=== PATIENT | female | born 1985 | race Caucasian/White ===

== ENCOUNTER 2017-12-03 17:31 | Emergency (ER) | payer OTHER ==
--- NOTE | 2017-12-03 17:42 | EDPHY ---
H & P HPI/ROS: CHIEF COMPLAINT: Seizure, collapse HISTORY OF PRESENT ILLNESS: Patient is a 32-year-old female with a history of seizure disorder. Per her friend she has approximately 4 seizures a day. He was standing in front of the store talking to her when she fell straight back. He states it was like someone struck her. She does not have obvious seizure activity. When EMS found the patient she was minimally responsive. The patient 's friend states he has only known her for day and has no further history. He denies the patient using drugs or alcohol that he witnessed prior to the event. EMS found his blood glucose to be 1 0 4. REVIEW OF SYSTEMS: Limited due the patient's altered mental status Past Medical/Surgical History: Seizure disorder, CVA Past surgical history: Unknown Social history: Homeless Physical Exam: Vital signs noted GENERAL: Well-appearing, in no acute distress, alert. HEAD: No evidence of trauma. EYES: PERRLA, EOMI, normal to inspection. ENT: Airway intact, no dental or oral injury, no malocclusion, no hemotympanum , normal external examination. NECK: The trachea is midline. There is no crepitus. The C-spine is nontender. . RESPIRATORY: Clear to auscultation bilaterally, no rales, rhonchi or wheezing. There is no crepitus or palpable rib fractures. CVS: Regular rate and rhythm, no rubs, murmurs, or gallops. ABDOMEN: Soft, nontender, nondistended, normal bowel sounds, no bruising or abrasions. Pelvis: Stable. No tenderness palpation. Hips full range of motion. BACK: Normal to inspection, no spinal tenderness, no spinal step off, no notable bruising or abrasions. SKIN: Normal color, warm, dry. No pallor or diaphoresis. EXTREMITIES: Right upper extremity: Atraumatic. No visible signs of trauma. No tenderness palpation. Neurovascular intact distally. Left upper extremity: Atraumatic. No visible signs of trauma. No tenderness palpation. Neurovascular intact distally. Right lower extremity: Atraumatic. No visible signs of trauma. No tenderness palpation. Neurovascular intact distally. Left lower extremity: Atraumatic. No visible signs of trauma. No tenderness palpation. Neurovascular intact distally. NEURO/PSYCH: Alert and oriented x1, GCS 14, flat affect, normal motor sensory exam. Constitutional: Initial Vital Signs Temperature (C) 36.6 C 12/03/17 17:31 Heart Rate 76 12/03/17 17:31 Respiratory Rate 16 12/03/17 17:31 Blood Pressure 125/87 H 12/03/17 17:31 O2 Sat (%) 96 12/03/17 17:31 O2 Delivery Mode Room Air Allergies/Adverse Reactions: Unable to Assess Allergy (Unverified 12/03/17 17:41) Home Medications: Medication Instructions Recorded Unobtainable 12/03/17 Medical Decision Making - Diagnostics Imaging Results: Imaging Impressions Cervical Spine CT 12/03/17 17:43 Impression: 1. Negative for intracranial posttraumatic abnormality. 2. See above report for additional findings. CT Cervical Spine Without Contrast History: Trauma. Technique: Multislice helical CT through the cervical spine without contrast from the skull base to T1. Soft tissue and bone evaluation is performed. Sagittal and coronal reconstructions are obtained and reviewed. Dose reduction techniques were utilized. Findings: Cervical alignment is anatomic. No fracture or dislocation is identified. The relationship between skull base and C1 is normal. The C1-C2 articulation is normal. The odontoid process is normal. Disk spaces maintain their normal height. The cervical thoracic junction is normal. Soft tissue window evaluation does not show evidence of epidural or prevertebral hematoma. Surgical clips are noted in the region of the thyroid. Impression: 1. Negative for fracture. 2. See above report for additional findings. Results called and discussed with JORDAN WALKER M.D. on 12/03/2017 at 19:29 Chest X-Ray 12/03/17 17:43 Impression: 1. Increased interstitial markings. Differential includes early pulmonary edema , bronchitis. 2. Doubt focal cavitary lesion in the right lower lobe. It is likely artifactual considering how well rounded this focus is. Head CT 12/03/17 17:43 Impression: 1. Negative for intracranial posttraumatic abnormality. 2. See above report for additional findings. CT Cervical Spine Without Contrast History: Trauma. Technique: Multislice helical CT through the cervical spine without contrast from the skull base to T1. Soft tissue and bone evaluation is performed. Sagittal and coronal reconstructions are obtained and reviewed. Dose reduction techniques were utilized. Findings: Cervical alignment is anatomic. No fracture or dislocation is identified. The relationship between skull base and C1 is normal. The C1-C2 articulation is normal. The odontoid process is normal. Disk spaces maintain their normal height. The cervical thoracic junction is normal. Soft tissue window evaluation does not show evidence of epidural or prevertebral hematoma. Surgical clips are noted in the region of the thyroid. Impression: 1. Negative for fracture. 2. See above report for additional findings. Results called and discussed with JORDAN WALKER M.D. on 12/03/2017 at 19:29 ED Course/Re-evaluation: In the emergency department I met EMS on arrival. I took report from the yeast culture developer. Laboratories were obtained. Head CT, C-spine CT, chest x-ray and EKG were obtained. CBC showed elevated white count of 10. It was otherwise unremarkable. Chemistry panel normal. negative. The patient was rechecked during her stay. She was stable with no new complaints. Awaiting head CT. Patient's white count was 10. The rest the CBC was unremarkable. Chemistry panel unremarkable. negative. LFTs negative. EKG shows normal sinus rhythm, normal rate, normal axis, normal intervals. There are no ST or T-wave abnormalities. EKG is normal as interpreted by me. Head CT: No acute disease. Please refer the dictated report by the radiologist. 1942: Patient was able to ambulate well. She had no complaints. I discussed all results and answered all her questions. She was given warnings prior to leaving. She will return with worsening symptoms. Differential Diagnosis: My differential includes but is not limited to ACS, acute CO, dysrhythmia, hemorrhagic CVA, ischemic CVA, dissection, aneurysm, seizure, electrolyte abnormality, sugar abnormality, drug abuse - Data Points Laboratory Results: Laboratory Results 12/03/17 17:20 12/03/17 17:20 12/03/17 12/03/17 12/03/17 17:20 17:20 17:20 WBC RBC Hgb Hct MCV MCH MCHC RDW Plt Count MPV Neut % (Auto) Lymph % (Auto) [place] % (Auto) Eos % (Auto) Baso % (Auto) Nucleat RBC Rel Count Absolute Neuts (auto) Absolute Lymphs (auto) Absolute Monos (auto) Absolute Eos (auto) Absolute Basos (auto) Absolute Nucleated RBC Immature Gran % Immature Gran # PT 12.2 SEC SEC (12.0-15.0) INR 0.88 (0.83-1.16) APTT 29.7 SEC SEC (23.0-38.0) Sodium 143 mEq/L mEq/L (135-145) Potassium 3.8 mEq/L mEq/L (3.5-5.2) Chloride 106 mEq/L mEq/L (97-110) Carbon Dioxide 24 mEq/l mEq/l (22-31) Anion Gap 13 mEq/L mEq/L (8-16) BUN 13 mg/dL mg/dL (7-23) Creatinine 0.8 mg/dL mg/dL (0.6-1.0) Estimated GFR > 60 Glucose 100 mg/dL mg/dL (70-100) Calcium 9.0 mg/dL mg/dL (8.5-10.4) Total Bilirubin 0.2 mg/dL mg/dL (0.1-1.4) Conjugated Bilirubin 0.2 mg/dL mg/dL (0.0-0.5) Unconjugated Bilirubin 0.0 mg/dL mg/dL (0.0-1.1) AST 26 IU/L IU/L (14-46) ALT 45 IU/L IU/L (9-52) Alkaline Phosphatase 84 IU/L IU/L (38-126) Troponin I < 0.012 ng/mL ng/mL (0.000-0.034) Total Protein 7.3 g/dL g/dL (6.3-8.2) Albumin 4.1 g/dL g/dL (3.5-5.0) Lipase 269 IU/L IU/L (23-300) Beta HCG, Qual NEGATIVE 12/03/17 17:20 WBC 10.72 10^3/uL H 10^3/uL (3.80-9.50) RBC 4.65 10^6/uL 10^6/uL (4.18-5.33) Hgb 15.1 g/dL g/dL (12.6-16.3) Hct 45.1 % % (38.0-47.0) MCV 97.0 fL fL (81.5-99.8) MCH 32.5 pg pg (27.9-34.1) MCHC 33.5 g/dL g/dL (32.4-36.7) RDW 12.6 % % (11.5-15.2) Plt Count 230 10^3/uL 10^3/uL (150-400) MPV 11.3 fL fL (8.7-11.7) Neut % (Auto) 63.0 % % (39.3-74.2) Lymph % (Auto) 26.2 % % (15.0-45.0) [place] % (Auto) 6.9 % % (4.5-13.0) Eos % (Auto) 2.6 % % (0.6-7.6) Baso % (Auto) 0.9 % % (0.3-1.7) Nucleat RBC Rel Count 0.0 % % (0.0-0.2) Absolute Neuts (auto) 6.75 10^3/uL H 10^3/uL (1.70-6.50) Absolute Lymphs (auto) 2.81 10^3/uL 10^3/uL (1.00-3.00) Absolute Monos (auto) 0.74 10^3/uL 10^3/uL (0.30-0.80) Absolute Eos (auto) 0.28 10^3/uL 10^3/uL (0.03-0.40) Absolute Basos (auto) 0.10 10^3/uL 10^3/uL (0.02-0.10) Absolute Nucleated RBC 0.00 10^3/uL 10^3/uL (0-0.01) Immature Gran % 0.4 % % (0.0-1.1) Immature Gran # 0.04 10^3/uL 10^3/uL (0.00-0.10) PT INR APTT Sodium Potassium Chloride Carbon Dioxide Anion Gap BUN Creatinine Estimated GFR Glucose Calcium Total Bilirubin Conjugated Bilirubin Unconjugated Bilirubin AST ALT Alkaline Phosphatase Troponin I Total Protein Albumin Lipase Beta HCG, Qual Medications Given: Discontinued Medications Sodium Chloride (Ns) 500 mls @ 1,000 mls/hr IV EDNOW ONE PRN Reason: Protocol Stop: 12/03/17 18:12 Last Admin: 12/03/17 17:52 Dose: 500 mls Departure - Departure Disposition: Home, Routine, Self-Care Clinical Impression: Seizure disorder Altered mental status Qualifiers: Altered mental status type: unspecified Qualified Code(s): R41.82 - Altered mental status, unspecified Condition: Good Instructions: Epilepsy (ED), Fall Prevention (ED) Additional Instructions: Return with worsening symptoms or any other concerns. Referrals: [facility],. [Clinic] - As per Instructions
[2017-12-03] MEDS ORDERED: NS 500 ML IV ONE (17:43)
[2017-12-03 17:46] VITALS: RESP 16; TEMP 97.9
[2017-12-03 17:57] LABS: PLATELET COUNT 230 10^3/uL (150-400)
[2017-12-03 18:06] LABS: INR 0.88 (0.83-1.16); PROTIME(PATIENT) 12.2 SEC (12.0-15.0)
--- NOTE | 2017-12-03 19:23 | CPEKG ---
Heart Rate: 69 RR Interval: 870 P-R Interval: 140 QRSD Interval: 84 QT Interval: 444 QTC Interval: 476 P [place]: 26 QRS [place]: 53 T Wave [place]: 23 EKG Severity - BORDERLINE ECG - EKG Impression: SINUS RHYTHM EKG Impression: BORDERLINE PROLONGED QT INTERVAL Electronically Signed By: Nan Mireles 03-Dec-2017 20:12:18
[2017-12-03 20:01] VITALS: BP 112/87; PULSE 75; O2SAT 98
== END 2017-12-03 20:00 | disposition home or self-care (01) ==
LOC: EDBD 17:31
DX: G40.909 Epilepsy, unspecified, not intractable, without status epilepticus (principal); R41.82 Altered mental status, unspecified; E86.9 Volume depletion, unspecified; Z86.73 Personal history of transient ischemic attack (TIA), and cerebral infarction without residual deficits